=== PATIENT | male | born 1930 | race Caucasian/White ===

== ENCOUNTER 2016-10-07 15:19 | Emergency (ER) | payer MEDICARE, BC ==
[~2016-10-07] VITALS: Ht 177.8 cm; Wt 86.4 kg
[~2016-10-07 15:19] MED LIST: AMLO10TA62 PO; CYAN10009 PO; DOXE10CA2 PO; LABE200T PO; LUTE20TA PO; MINO2.5T2 PO; MULT-1198 PO; PROP10DR2 BOTH EYES; TRAM50TA4 PO
[2016-10-07 15:25] VITALS: TEMP 97.5; Ht 177.8 cm; Wt 86.4 kg
--- OUTSIDE RECORDS SUMMARY | 2016-10-07 15:25 | XMS REPORT | Continuity of Care Document ---
Author Author [facility] Organization [facility] Address Unknown Phone Unavailable Support Name Relationship Address Phone JOSÉ MIGUEL BOYD MD Caregiver [facility] [address] [place] [address] Unavailable JOSÉ MIGUEL WATSON DO Caregiver [facility] [address] [place] [phone] PATRICIA GLEZ SON IN LAW Next Of Kin [address] [place] [address] Insurance Providers Payer Name Policy Number Subscriber Name Relationship Medicare [id number] Fay Pena 16 Self [facility] [id number] Fay Pena 16 Self Advance Directives Directive Response Recorded Date/Time Advanced Directives Type None 06/24/14 8:33pm Problems Medical Problems Problem Onset Date Status Influenza A Unknown Active Medications Medication Dose Route Sig Days/Qty Instructions Order Date Discontinued Date Status Clopidogrel Bisulfate 75 Mg PO DAILY 11/20/09 02/01/10 Discontinued [Bisoprolol] 0.25 PO DAILY 11/19/09 11/20/09 Discontinued Fexofenadine Hcl 1 Tab PO DAILY 03/30/10 Active Lutein 1 Tab PO DAILY 03/30/10 03/31/11 Discontinued [Vitamin D] 11/19/09 11/19/09 Discontinued [Vitamin D] 11/19/09 11/19/09 Discontinued [Melatonin] 1 Tab PO BEDTIME 03/30/10 03/31/11 Discontinued Cholecalciferol 2 Tab PO DAILY 03/30/10 03/31/11 Discontinued [Vitamin D] PO DAILY 11/19/09 11/20/09 Discontinued Aa8/A-Carn Hcl/Grp/[place]/Hc126 1 Cap PO DAILY 11/19/09 11/20/09 Discontinued [Super Beta Prostate] 1 Tab PO DAILY 03/30/10 03/31/11 Discontinued Amino Acids 1 Cap PO BEDTIME 02/01/10 02/06/10 Discontinued Bisoprol/Hydrochlorothiazide 1 Tab PO DAILY 11/20/09 02/01/10 Discontinued Amlodipine Besylate 1 Tab PO DAILY 03/30/10 09/02/10 Discontinued Cyclobenzaprine Hcl TWICE A DAY 02/01/10 02/06/10 Discontinued Tramadol Hcl NEEDED 02/01/10 02/06/10 Discontinued Bisoprolol Fumarate 5 Mg PO TWICE A DAY 09/02/10 Active Amlodipine Besylate 10 Mg PO DAILY 09/02/10 03/31/11 Discontinued Ferrous Gluconate 325 ( PO DAILY 09/02/10 03/31/11 Discontinued Hydrochlorothiazide 25 Mg PO DAILY 09/02/10 03/31/11 Discontinued Clonidine Hcl 0.1 Mg PO TWICE A DAY 09/29/10 03/31/11 Discontinued [Nutrlite Doub. Mvt] DAILY 09/29/10 03/31/11 Discontinued Prasterone (Dhea)/Ca Carbonate 1 Tab PO BEDTIME 09/29/10 03/31/11 Discontinued Lisinopril 10 Mg PO DAILY 03/31/11 12/05/11 Discontinued Zolpidem Tartrate 5 Mg PO BEDTIME 03/31/11 12/05/11 Discontinued [Super Prostate] DAILY 07/08/11 12/05/11 Discontinued Amlodipine Besylate 10 Mg PO DAILY 12/05/11 Active Zolpidem Tartrate 5 Mg PO BEDTIME 12/05/11 Active Cyanocobalamin 1,000 Mcg IJ MONTHLY 12/05/11 Active Ondansetron 4 Mg PO Q6H/0300,0900,1500,2100 10 Qty Oral disintegrating tablet 06/24/14 Active Social History Social History Problem Response Recorded Date/Time Hx Substance Use No 06/24/2014 8:47pm Hx Alcohol Use Y VERY SELDOM 06/24/2014 8:47pm Tobacco Usage none 06/24/2014 9:11pm Query Response Start Date Stop Date Smoking Status Never smoker Hospital Discharge Instructions No hospital discharge instructions. Plan of Care No plan of care. Functional Status Query Response Date Recorded Physical Hygiene Self June 24, 2014 8:47pm Disabilities Hearing Visual June 24, 2014 8:47pm Devices Used Glasses Cane June 24, 2014 8:47pm Dressing Self June 24, 2014 8:47pm Ambulation Self June 24, 2014 8:47pm Diet Self June 24, 2014 8:47pm Mental Status Alert June 24, 2014 8:47pm Disabilities Hearing Visual June 24, 2014 8:47pm Devices Used Glasses Cane June 24, 2014 8:47pm Physical Hygiene Self June 24, 2014 8:47pm Dressing Self June 24, 2014 8:47pm Ambulation Self June 24, 2014 8:47pm Diet Self June 24, 2014 8:47pm Allergies, Adverse Reactions, Alerts Allergen Type Severity Reaction Status Last Updated Angiotensin-converting enzyme inhibitor Allergy Severe difficulty breathing Active 06/24/14 Penicillin Allergy Severe HIVES,ANGIOEDMA Active 06/24/14 Sulfa (Sulfonamide Antibiotics) Allergy Mild RASH Active 06/24/14 Aspirin Allergy Intermediate HIVES,ANGIOEDMA Active 06/24/14 Immunizations Name Given Type Hx Influenza Vaccination Y 2013 Historical Hx Pneumococcal Vaccination Y 2005 Historical Hx Tetanus, Diptheria, Pertussis Yes Historical Hx Influenza Vaccination Y 2013 Historical Hx Tetanus Diptheria N UNKNOWN Historical Hx Tetanus, Diptheria, Pertussis Yes Historical Vital Signs Acute Vital Signs Vital Response Date/Time Temperature (Fahrenheit) 99.3 deg F (96.8 - 99.1) Temperature (Calculated Celsius) 37.70152 degrees C (36.0 - 37.3) Pulse Rate (adult) 89 bpm (60 - 100) Respiratory Rate 20 breaths/min (10 - 20) O2 Sat by Pulse Oximetry 96 % (90 - 100) Blood Pressure 145/60 mm Hg Height 5 ft 10 in Weight 199 lb Body Mass Index 28.0 kg/m^2 Results Test Source Date Result Interp. Ref. Range Comments Activated Partial Thromboplast Time September 30, 2010 10:25am 32.5 SEC N 24 -36 Alanine Aminotransferase (ALT/SGPT) June 24, 2014 8:25pm 34 U/L N 21 -72 Albumin June 24, 2014 8:25pm 4.3 G/DL N 3.5-5.0 Albumin/Globulin Ratio June 24, 2014 8:25pm 1.6 RATIO N 1.1-2.2 Aldosterone February 07, 2010 4:20am Ref lab rpt scanned - --- 1612 ---ALDOSB previously reported as: SENT OUT Alkaline Phosphatase June 24, 2014 8:25pm 66 U/L N 38-126 Anion Gap June 24, 2014 8:25pm 13 MEQ/L N 5-15 Aspartate Amino Transf (AST/SGOT) June 24, 2014 8:25pm 22 U/L N 17- 59 B-Type Natriuretic Peptide March 31, 2011 11:45am 87 PG/ML N 15-100 BUN/Creatinine Ratio June 24, 2014 8:25pm 13 RATIO N 6-26 Band Neutrophils # February 06, 2010 11:26am 0.1 T/MM3 - Band Neutrophils % February 06, 2010 11:26am 1.0 % N 0-6 Basophils # (Auto) June 24, 2014 8:25pm 0.0 T/MM3 N 0-0.2 Basophils # (Manual) February 06, 2010 11:26am 0.0 T/MM3 N 0-0.2 Basophils % (Manual) February 06, 2010 11:26am 0.0 % N 0-2 Basophils (%) (Auto) June 24, 2014 8:25pm 0.3 % N 0-2 Blood Urea Nitrogen June 24, 2014 8:25pm 12.0 MG/DL N 9-20 Calcium Level June 24, 2014 8:25pm 9.4 MG/DL N 8.4-10.2 Calculated Osmolality June 24, 2014 8:25pm 266 MOSM/KG N 261-280 Carbon Dioxide Level June 24, 2014 8:25pm 22 MEQ/L N 22-30 Chloride Level June 24, 2014 8:25pm 101 MEQ/L N 98-107 Conjugated Bilirubin December 05, 2011 9:45am 0.00 MG/DL N 0.00-0.30 Cortisol AM Sample February 07, 2010 4:20am 8.9 UG/DL L 10.4-26.4 Creatinine June 24, 2014 8:25pm 0.9 MG/DL N 0.8-1.5 D-Dimer December 05, 2011 9:45am 341 NG/ML H 0-230 <224 NG/ML=PRESUMPTIVE NEGATIVE FOR PE OR DVT>224 NG/ML=ADDITIONAL EVALUATION FOR PE OR DVT RECOMMENDED Eosinophils # (Auto) June 24, 2014 8:25pm 0.1 T/MM3 N 0-0.5 Eosinophils # (Manual) February 06, 2010 11:26am 0.0 T/MM3 N 0-0.5 Eosinophils % (Manual) February 06, 2010 11:26am 0.0 % N 0-4 Eosinophils (%) (Auto) June 24, 2014 8:25pm 1.5 % N 0-4 Free Thyroxine February 06, 2010 11:26am 1.15 NG/DL N 0.78-2.19 Globulin June 24, 2014 8:25pm 2.7 G/DL N 2.4-3.6 Glucose Level June 24, 2014 8:25pm 163 MG/DL H 75-110 Hematocrit June 24, 2014 8:25pm 42.6 % N 41-53 Hemoglobin June 24, 2014 8:25pm 14.5 GM/DL N 13.5-17.5 Influenza Type A Antigen June 24, 2014 9:09pm Positive - This test can not distinguish influenza A virus subtypes,e.g., seasonal influenza A and novel influenza A (H1N1). Influenza Type B Antigen June 24, 2014 9:09pm Negative - Negative for Flu B protein antigen. Assay sensitivity is90%. Lymphocytes # (Auto) June 24, 2014 8:25pm 0.7 T/MM3 L 1-4.8 Lymphocytes # (Manual) February 06, 2010 11:26am 1.4 T/MM3 N 1-4.8 Lymphocytes % (Manual) February 06, 2010 11:26am 13.0 % L 23-45 Lymphocytes (%) (Auto) June 24, 2014 8:25pm 8.7 % L 23-45 Magnesium Level February 06, 2010 11:26am 2.2 MG/DL N 1.6-2.3 Mean Corpuscular Hemoglobin June 24, 2014 8:25pm 29.8 UUG N 26-34 Mean Corpuscular Hemoglobin Concent June 24, 2014 8:25pm 34.0 GM/DL N 31-37 Mean Corpuscular Volume June 24, 2014 8:25pm 87.7 UM3 N 80-100 Mean Platelet Volume June 24, 2014 8:25pm 10.6 UM3 N 9.4-12.4 Monocytes # (Auto) June 24, 2014 8:25pm 0.9 T/MM3 H 0-0.8 Monocytes # (Manual) February 06, 2010 11:26am 0.3 T/MM3 N 0-0.8 Monocytes % (Manual) February 06, 2010 11:26am 3.0 % N 0-9.0 Monocytes (%) (Auto) June 24, 2014 8:25pm 11.2 % H 0-9.0 Neutrophils # (Auto) June 24, 2014 8:25pm 6.1 T/MM3 N 1.8-7.7 Neutrophils # (Manual) February 06, 2010 11:26am 9.0 T/MM3 H 1.8-7.7 Neutrophils % (Manual) February 06, 2010 11:26am 83.0 % H 33-66 Neutrophils (%) (Auto) June 24, 2014 8:25pm 78.0 % H 33-66 Platelet Count June 24, 2014 8:25pm 159 T/MM3 N 130-400 Potassium Level June 24, 2014 8:25pm 4.1 MEQ/L N 3.6-5 Prothromb Time International Ratio September 30, 2010 10:25am 1.05 N 0.86- 1.10 THERAPUTIC RANGE=2.00-3.00 FOR ANTI-THROMBOSIS THERAPUTIC RANGE=2.50- 3.50 FOR IMPLANTED VALVE RDW Standard Deviation June 24, 2014 8:25pm 41.5 FL N 36.9-50.2 Red Blood Count June 24, 2014 8:25pm 4.86 M/MM3 N 4.50-5.90 Sodium Level June 24, 2014 8:25pm 136 MEQ/L N 134-144 Thyroid Stimulating Hormone (TSH) February 06, 2010 11:26am 2.53 MIU/ML N 0.47-4.68 Total Bilirubin June 24, 2014 8:25pm 0.70 MG/DL N 0.20-1.30 Total Protein June 24, 2014 8:25pm 7.0 G/DL N 6.3-8.2 Troponin I December 05, 2011 9:45am < 0.012 ng/ml 0-0.12 Unconjugated Bilirubin December 05, 2011 9:45am 0.40 MG/DL N 0.00-1.10 Urine Bacteria June 24, 2014 10:00pm Trace H - Has specimen been collected/obtained? Y Urine Bilirubin June 24, 2014 10:00pm Negative - Has specimen been collected/obtained? Y Urine Blood June 24, 2014 10:00pm 3+ H - Has specimen been collected/obtained? Y Urine Collection Type June 24, 2014 10:00pm Cleancatch-midstream - Has specimen been collected/obtained? Y Urine Color June 24, 2014 10:00pm Yellow - Has specimen been collected/obtained? Y Urine Fractionated Catecholamines February 07, 2010 6:30pm Ref lab rpt scanned - --- 02/12/10 1626 ---CATFU previously reported as: SENT OUT Urine Glucose (UA) June 24, 2014 10:00pm Negative - Has specimen been collected/obtained? Y Urine Ketones June 24, 2014 10:00pm Trace H - Has specimen been collected/obtained? Y Urine Leukocyte Esterase June 24, 2014 10:00pm Negative - Has specimen been collected/obtained? Y Urine Magnesium February 07, 2010 6:30pm 4.0 MG/DL - Has specimen been collected/obtained? YWhat is the Source? VOIDED Urine Magnesium 24 Hour February 07, 2010 6:30pm 112.0 MG/24HR N 73.0- 122.0 Calculated Magnesium corrected after Quality Assurancereview. --- 03/06/102008 --- [id number] previously reported as: 11.2 L MG/24HR Urine Mucus June 24, 2014 10:00pm Present - Has specimen been collected/obtained? Y Urine Nitrite June 24, 2014 10:00pm Negative - Has specimen been collected/obtained? Y Urine Protein June 24, 2014 10:00pm 1+ H - Has specimen been collected/obtained? Y Urine RBC June 24, 2014 10:00pm 3-5 /HPF H - Has specimen been collected/obtained? Y Urine Specific [place] June 24, 2014 10:00pm 1.025 - Has specimen been collected/obtained? Y Urine Sperm June 24, 2014 10:00pm Present - Has specimen been collected/obtained? Y Urine Total Volume February 07, 2010 6:30pm 2.800 L - Has specimen been collected/obtained? YWhat is the Source? VOIDED Urine Turbidity June 24, 2014 10:00pm Slt cldy - Has specimen been collected/obtained? Y Urine Urobilinogen June 24, 2014 10:00pm 0.2 EU/DL - Has specimen been collected/obtained? Y Urine WBC June 24, 2014 10:00pm 0-1 /HPF - Has specimen been collected/obtained? Y Urine pH June 24, 2014 10:00pm 6.0 - Has specimen been collected/ obtained? Y White Blood Count June 24, 2014 8:25pm 7.8 T/MM3 N 4.5-11.0 Chemistry Specimen Hemolysis June 24, 2014 8:25pm < 15 0-25 0-25 : No Hemolysis.26-70: Slight Hemolysis - can falsely elevate K and Urine Protein. 71-285: Moderate Hemolysis - can falsely elevate K, Troponin I, CA 19-9, PTH, CSF GLucose, and Urine Protein, and can falsely decrease Phenytoin. 286-999: Gross Hemolysis - can falsely elevate K, Troponin I, CA 19-9, PTH, CSF Glucose, and Urine Protine, and can falsely decrease Phenytoin. Recommend specimen recollection. Lab Scanned Report October 01, 2010 5:01pm BLOOD BANK DOCUMENTATION [id number] - Metanephrines & Normetanephrines February 07, 2010 6:30pm Ref lab rpt scanned - --- 02/13/10 1642 ---METANU previously reported as: SEND OUT Methicillin-Resist S.aureus DNA PCR September 01, 2010 9:04am Negative - Turbidity June 24, 2014 8:25pm < 20 0-20 Platelet Function - Aspirin September 30, 2010 10:25am 660 ARU - 350-549 ARU: Therapeutic range for platelet function withaspirin therapy. 550-700 ARU: does not indicate effect of aspirin therapy. Test not reliable for NSAIDS, anti-platelet agents, low platelets, or low hematocrits. Not to be used for inherited platelet disorders. Glomerular Filtration Rate Calc June 24, 2014 8:25pm 80 - Immature Granulocyte # (Auto) June 24, 2014 8:25pm 0.02 T/MM3 N 0.00 -0.03 Immature Granulocyte % (Auto) June 24, 2014 8:25pm 0.3 % N 0.0-0.5 Icterus Index June 24, 2014 8:25pm < 2 0-7 MRSA Specimen Source September 01, 2010 9:04am Nasal - XF-Pkl-G-Type Natriuretic Peptide December 05, 2011 9:45am 297 PG/ML H 0- 175 Rule in cut points: <50 years old=450; 50-75 years old=900; >75 years old=1800; When utilizing ProBNP rule-in cut points, adjustment for impaired renal function is typically not required. Urine Microscopic Not Indicated March 31, 2011 1:00pm Not indicated - Has specimen been collected/obtained? Y Gram Stain Knee, Intraoperative Site-Left July 09, 2011 8:14am Procedures No known history of procedures. Encounters Encounter Location Date/Time Departed Emergency Room [facility] 06/24/14 8:31pm Recent Diagnosis
--- NOTE | 2016-10-07 15:46 | ERPDOC ---
Departure Disposition Decision Date: Oct 07, 2016 Disposition Decision Time: 16:40 Disposition: 01 DISCHARGED HOME, SELF-CARE Impression Impression Impression: Primary Impression: Fall Encounter type: initial encounter Qualified Codes: W19.XXXA - Unspecified fall, initial encounter Additional Impression: Hematoma of frontal scalp Encounter type: initial encounter Qualified Codes: S00.03XA - Contusion of scalp, initial encounter Severity: Moderate Condition: Stable Seen By: Physician only Referrals: JOSÉ MIGUEL WATSON DO (Family) Patient Instructions: Head Injury (ED), Fall Prevention for Older Adults (ED) Problems/Meds/Labs Reviewed?: Yes Medications reviewed and manag: Yes Additional Instructions: Home to rest this evening. Use ice packs to help decrease the swelling on your forehead. Take Tylenol or Ibuprofen as needed for headache. Monitor for signs of internal head injury. Follow up with your eye doctor to get glasses repaired and with PCP if you have further concerns about your head. Follow up care ordered?: Yes Mental Status: Alert, Oriented HPI - Fall/Injury General Chief Complaint: Fall Stated Complaint: FALL/HEAD PAIN Time Seen by Provider: 15:44 Source: patient, family (), RN notes reviewed, old records Exam Limitations: no limitations HPI - Fall/Injury Initial Comments This patient tripped on an uneven brick in the road as he was crossing and fell , hitting the left forehead on the ground and scratching and bending up his glasses. He went to the salon/spa manager to get his glasses straightened out and was told to come to the ER for a CTscan of his head due to the large hematoma on his left forehead. He did not lose consciousness. He has had a left knee replacement twice and he often drags that legs some. This has led to frequent falls. Tetanus updated in 2013. Occurred At: other (street) Onset: Rapid Duration: 1-3 hrs Pain Scale: Now: 0/10 Injuries/Pain Location: head 1 - hematoma with ovverlying abrasion 2 - small abrasion Context: tripped Loss of Consciousness: no loss of consciousness Associated Symptoms: denies symptoms Hx of Similar Symptoms: Yes Allergies: Coded Allergies: OLGA Inhibitors (Verified Allergy, Severe, difficulty breathing, 10/07/16) Penicillins (Verified Allergy, Severe, HIVES,ANGIOEDMA, 10/07/16) aspirin (Verified Allergy, Intermediate, HIVES,ANGIOEDMA, 10/07/16) Sulfa (Sulfonamide Antibiotics) (Verified Allergy, Mild, RASH, 10/07/16) apple (Verified Allergy, Unknown, 10/07/16) Past History Past Medical History Metabolic: cancer (melanoma), diabetes, hypertension Respiratory: asthma Male: BPH Integumentary: melanoma Surgical History General: hernia, tonsils Cardiac: cardiac cath Family History Family PMH: FOUND: hypertension Vaccines Hx Influenza Vaccination: Yes (FALL 2014) Hx Pneumococcal Vaccination: Yes (UNKNOWN DATE) Hx Tetanus Diptheria: No (UNKNOWN) Hx Tetanus, Diptheria, Pertuss: Yes Social History Does patient use chewing tobac: No Sexuality: female partner Review of Systems Constitutional Constitutional: DENIES: appetite decrease, chills, dizziness, fever, weakness Eyes General: DENIES: pain Lids/Accessories: DENIES: erythema Vision: DENIES: blurring ENMT Ears: DENIES: pain Hearing: DENIES: hearing loss Balance: DENIES: vertigo Sinuses: DENIES: congestion, rhinorrhea Mouth/Throat: DENIES: sore throat Teeth: DENIES: pain Cardiovascular Cardiac: DENIES: chest pain Rhythm/Rate: DENIES: palpitations Vascular: DENIES: pedal edema, unilateral swelling Pulmonary Respiratory: DENIES: cough, dyspnea, sputum GI Upper Abdomen: DENIES: heartburn/indigestion, nausea, vomiting Lower Abdomen: DENIES: blood in stool, constipation, diarrhea General: DENIES: dysuria, hematuria Male: DENIES: hesitancy Musculoskeletal General: DENIES: joint pain, pain Integumentary Skin: see HPI Comments abrasions on forehead Neurological General: DENIES: headache, memory disturbances, seizures, syncope Psychiatric Psychiatric: DENIES: anxiety, depression Endocrine Endocrine: DENIES: heat/cold intolerance Hematologic/Lymphatic Hematologic/Lymphatic: DENIES: anemia, easy bruising Allergic/Immunological Allergic/Immunoligical: DENIES: hives All other Systems All Other Systems: Reviewed and Negative Physical Exam General General Nourishment: well nourished, well developed, appears stated age, no acute distress, adult General Body Habitus: well groomed Vitals and Pain First Documented Vital Signs Date Time Temp Pulse Resp B/P Pulse Ox O2 Delivery O2 Flow Rate FiO2 10/07/16 15:25 97.5 75 18 179/86 96 Room Air Weight: Kilograms: 86.400 Height (feet): 5 Height (inches): 10.00 Triage Pain Scale: RN VS reviewed by Provider: Yes Normal Exams: Head: Normocephalic w/o trauma Eyes: Pupils are PERRLA w/ EOMI, No scleral icterus, irritation, or foreign bodies noted ENMT: nasal exudates, pharyngeal erythema, or exudates are noted Dental: No fractured, loose, or missing teeth noted Neck: Full range of motion, without adenopathy, JVD, bruits or thyromegaly Chest/Resp: Clear all teresa, with good airflow, and symmetry bilaterally CV: Regular rate and rhythm, without murmur or gallop, Pulses 2+ all extremities, capillary refill, <2 seconds all ext., no pedal edema noted Abdomen: Bowel sounds positive, soft, non-tender, non-distended, no hepatosplenomegaly, masses or bruits noted Musculoskeletal: No tenderness, or deformity noted, good range of motion, all extremities Integumentary: No rashes, hives, or bruising noted, hair and nails, without abnormality Neurologic: Patient is alert, and oriented, cranial nerves, motor/sensory/ cerebellar, exams w/o gross deficits, to observation Psychiatric: Patient exhibits, appropriate attention, emotion and affect Integumentary (brief) Integumentary Brief: FOUND: dry, pink, warm Comments abrasions over left forehead with underlying hematoma Differential Diagnoses Considering: Abrasion, Concussion, Contusion, Epidural Hematoma, Subdural Hematoma, Other Progress Results/Orders Orders Procedure Category Date Status Time Ct Head W/O Contrast CT 10/07/[address] negative. Patient given head injury instructions. Will send home. CT Date CT Interpreted for [place]: Oct 07, 2016 CT : CT: Head no contrast Interpretation: Normal, Reviewed Written Report JAVED WHITTINGTON MD Oct 07, 2016 15:46
[2016-10-07] MEDS ORDERED: DUTA0.5C13 PO (15:53)
[2016-10-07] MEDS ORDERED: METF750T2 PO (15:55)
--- NOTE | 2016-10-07 16:11 | DI ---
Indication: ITS.REASON: fall, hematoma PROCEDURE: CT HEAD W/O CONTRAST: Encounter: Initial Comparison: March 31, 2011 Technique: Axial CT images through the head were performed without contrast. Iterative Reconstruction dose reducing technique was utilized. FINDINGS: Mild atrophy. The ventricles are of normal size, shape, and configuration for the patient's age. There is no evidence of acute intracranial hemorrhage, midline displacement, or mass effect. There are scattered areas of low attenuation in the white matter which most likely represent changes of chronic microvascular ischemia. The CT attenuation of the brain parenchyma is otherwise normal within the cerebellum, brain stem, and cerebral hemispheres. The tympanic cavities and mastoid air cells are free of appreciable disease. There are no definite fractures of the skull base, calvarium, or visualized portion of the midface. Left frontal scalp swelling and hematoma. IMPRESSION: No CT evidence of acute traumatic intracranial injury. .
--- OUTSIDE RECORDS SUMMARY | 2016-10-07 16:15 | XMS REPORT | Continuity of Care Document ---
Author Author [facility] Organization [facility] Address Unknown Phone Unavailable Support Name Relationship Address Phone JOSÉ MIGUEL BOYD MD Caregiver [facility] [address] [place] [address] Unavailable JOSÉ MIGUEL WATSON DO Caregiver [facility] [address] [place] [phone] PATRICIA GLEZ SON IN LAW Next Of Kin [address] [place] [address] Insurance Providers Payer Name Policy Number Subscriber Name Relationship Medicare [id number] Fay Pena [address] [facility] [id number] Fay Pena 16 Self Advance Directives Directive [...] D] PO DAILY 11/19/09 11/20/09 Discontinued Aa8/A-Carn Hcl/Grp/[place]/Hc126 1 Cap PO DAILY 11/19/09 11/20/09 Discontinued [...] F (96.8 - 99.1) Temperature (Calculated Celsius) 37.95098 degrees C (36.0 - 37.3) Pulse Rate [...] Has specimen been collected/obtained? Y Urine Specific [place] June 24, 2014 10:00pm 1.025 - Has [...] October 01, 2010 5:01pm BLOOD BANK DOCUMENTATION [id number] - Metanephrines & Normetanephrines February 07, 2010 [...] Source September 01, 2010 9:04am Nasal - ZE-Zmu-W-Type Natriuretic Peptide December 05, 2011 9:45am 297 [...] Encounters Encounter Location Date/Time Departed Emergency Room [facility] 06/24/14 8:31pm Recent Diagnosis
[2016-10-07 17:05] VITALS: BP 181/87; PULSE 63; RESP 18; O2SAT 95
== END 2016-10-07 17:05 | disposition home or self-care (01) ==
LOC: ED 15:19
DX: S00.83XA Contusion of other part of head, initial encounter (principal); W01.0XXA Fall on same level from slipping, tripping and stumbling without subsequent striking against object, initial encounter; Y93.01 Activity, walking, marching and hiking; Y92.414 Local residential or business street as the place of occurrence of the external cause; Y99.8 Other external cause status